=== PATIENT | male | born 1950 | race Caucasian/White ===

== ENCOUNTER 2020-08-04 08:08 | Outpatient (CLI) | payer MEDICARE | END 2020-08-04 08:09 | disposition home or self-care (01) | LOC: CSHCT 08:08 | PROVIDERS: ATTEND Family Medicine Sports Medicine | DX: E27.8 Other specified disorders of adrenal gland (principal); E27.9 Disorder of adrenal gland, unspecified | CPT/HCPCS: 74170; 82565 ==

== ENCOUNTER 2023-06-29 13:31 | Inpatient (IN) | payer OTHER ==
[2023-06-29 14:40] LABS: Hematocrit 43.4 % (38.8-50.0); Hemoglobin 14.8 g/dL (13.5-17.5); MDiff Complete? YES; Mean Corpuscular HGB CONC 34.1 g/dL (32.0-36.0); Mean Corpuscular Hemoglobin 31.4 pg (27.0-33.0); Mean Corpuscular Volume 92.1 fl (81.2-95.1); Mean Platelet Volume 10.3 fl (7.4-10.4); Platelet Count 239 10x3/uL (150-450); Red Blood Cell (RBC) Count 4.71 10x6/uL (4.32-5.72); White Blood Cell (WBC) Count 7.6 10x3/uL (3.5-10.5)
[2023-06-29 14:47] LABS: ALT (SGPT) 18 U/L (8-55); AST (SGOT) 15 U/L (5-34); Albumin 3.9 g/dL (3.4-4.8); Alkaline Phosphatase 62 U/L (40-110); Anion Gap 12 mmol/L (10-20); BUN (Urea Nitrogen) 14 mg/dL (8.4-25.7); Bilirubin, Total 0.6 mg/dL (0.2-1.2); Calc. Creatinine Clearance 0 mL/min (70-130); Calcium 8.7 mg/dL (7.8-10.44); Carbon Dioxide 27 mmol/L (23-31); Chloride 103 mmol/L (98-107); Estimated GFR 87; Globulin 2.7 g/dL (2.4-3.5); Glucose 105 mg/dL (83-110); Lipase 25 U/L (8-78); Potassium 3.7 mmol/L (3.5-5.1); Protein, Total 6.6 g/dL (5.8-8.1); Sodium 138 mmol/L (136-145)
[2023-06-29 14:50] LABS: Troponin I 0.011 ng/mL (< 0.028)
[2023-06-29 15:10] LABS: Band 5 % (5-11); Eosinophils 4 % (0-10); Lymphocytes 28 % (21-51); Monocytes 6 % (0-10); Neutrophil 56 % (42-75)
[2023-06-29 15:13] LABS: SARS-CoV-2 NAA Rapid Test Not Detected (NotDetected)
[2023-06-29 15:16] LABS: Platelet Adequacy Comment Appears Adequate; RBC Morph Comment Within Normal Limits
[2023-06-29] MEDS ORDERED: Ondansetron PF 4 MG/2 ML Vial IVP PRN (15:32)
[2023-06-29] MEDS ORDERED: Acetaminophen 325 MG TAB PO PRN (15:32)
[2023-06-29] MEDS ORDERED: Senokot S 8.6-50 MG TAB PO PRN (15:32)
[2023-06-29] MEDS ORDERED: Bisacodyl 5 MG TAB PO PRN (15:32)
[2023-06-29] MEDS ORDERED: Bisacodyl 10 MG SUPP PR PRN (15:32)
[2023-06-29] MEDS ORDERED: Aspirin Chewable 81 MG TAB ONE (15:41)
[2023-06-29] MEDS ORDERED: hydrALAZINE 20 MG/ML VIAL SLOW IVP PRN (16:21)
[2023-06-29] MEDS: Labetalol HCl 100 MG/20 ML VIAL SLOW IVP PRN (17:35)
[2023-06-29] MEDS: Atorvastatin Calcium 40 MG TAB PO SCH (21:44)
[2023-06-30 04:07] LABS: #Basophils 0.1 10x3/uL (0.0-0.2); #Eosinphils 0.1 10x3/uL (0.0-0.5); #Monocytes 0.6 10x3/uL (0.0-1.1); #Neutrophils 3.3 10x3/uL (1.5-8.4); %Basophils 1.4 % (0.0-2.0); %Eosinophils 2.4 % (0.0-6.0); %Lymphocytes 29.7 % (18.0-47.0); %Monocytes 9.8 % (0.0-10.0); %Neutrophils 56.2 % (40.0-75.0); Hematocrit 39.6 % (38.8-50.0); Hemoglobin 13.6 g/dL (13.5-17.5); Mean Corpuscular HGB CONC 34.3 g/dL (32.0-36.0); Mean Corpuscular Hemoglobin 32.1 pg (27.0-33.0); Mean Corpuscular Volume 93.4 fl (81.2-95.1); Mean Platelet Volume 10.6 fl (7.4-10.4); Platelet Count 222 10x3/uL (150-450); RBC Distribution Width 13.1 % (11.5-14.5); Red Blood Cell (RBC) Count 4.24 10x6/uL (4.32-5.72); White Blood Cell (WBC) Count 5.9 10x3/uL (3.5-10.5)
[2023-06-30 04:33] LABS: Anion Gap 15 mmol/L (10-20); BUN (Urea Nitrogen) 15 mg/dL (8.4-25.7); Calc. Creatinine Clearance 0 mL/min (70-130); Calcium 8.3 mg/dL (7.8-10.44); Carbon Dioxide 22 mmol/L (23-31); Cardiac Risk 2.7 (Less than 4.5); Chloride 105 mmol/L (98-107); Cholesterol 136 mg/dl (< 200 Desired); Estimated GFR 93; Glucose 99 mg/dL (83-110); HDL Cholesterol 50 mg/dL (>60 Neg Risk); LDL Cholesterol, Calculated 72 mg/dL; Magnesium 1.5 mg/dL (1.6-2.6); Potassium 3.3 mmol/L (3.5-5.1); Sodium 139 mmol/L (136-145); Triglycerides 69 mg/dL (Less than 150)
[2023-06-30 04:40] LABS: ALT (SGPT) 14 U/L (8-55); AST (SGOT) 15 U/L (5-34); Albumin 3.5 g/dL (3.4-4.8); Alkaline Phosphatase 54 U/L (40-110); Bilirubin, Direct 0.2 mg/dL (0.1-0.3); Bilirubin, Total 0.4 mg/dL (0.2-1.2); Protein, Total 5.8 g/dL (5.8-8.1)
[2023-06-30] MEDS ORDERED: Electrolyte Replacement Protocol 1 EACH FS SCH (07:15)
[2023-06-30] MEDS: FLU VACC QS2023(65UP)/MF59C/PF 60 MCG/0.5 ML SYRINGE IM ONE (09:14)
[2023-06-30] MEDS: Tamsulosin HCl 0.4 MG CAP PO SCH (09:29)
[2023-06-30] MEDS: Aspirin 81 mg Enteric Coated Tablet PO SCH (09:29)
[2023-06-30] MEDS: Potassium Chloride 20 MEQ TAB PO SCH (09:29)
[2023-06-30] MEDS: Magnesium 2 GM/50 ML(in water) 2 GM in Premix 1 BAG IVPB SCH (09:29)
[2023-06-30] MEDS: Lisinopril 20 MG TAB PO SCH (09:29)
[2023-06-30 14:23] LABS: Potassium 4.1 mmol/L (3.5-5.1)
[2023-06-30] MEDS: Amlodipine 5 MG TAB PO SCH (16:08)
[2023-06-30 16:33] LABS: Hemoglobin A1c 5.3 % (4.0-6.0)
[2023-06-30] MEDS: Enoxaparin 40 MG (0.4 mL) SYRINGE SC SCH (20:26)
[2023-07-01 04:40] LABS: Anion Gap 11 mmol/L (10-20); BUN (Urea Nitrogen) 13 mg/dL (8.4-25.7); Calc. Creatinine Clearance 112 mL/min (70-130); Calcium 8.1 mg/dL (7.8-10.44); Carbon Dioxide 25 mmol/L (23-31); Chloride 105 mmol/L (98-107); Estimated GFR 93; Glucose 103 mg/dL (83-110); Magnesium 2.2 mg/dL (1.6-2.6); Phosphorus 3.1 mg/dL (2.3-4.7); Potassium 3.9 mmol/L (3.5-5.1); Sodium 137 mmol/L (136-145)
[2023-07-01 06:36] LABS: #Basophils 0.1 10x3/uL (0.0-0.2); #Eosinphils 0.2 10x3/uL (0.0-0.5); #Monocytes 0.7 10x3/uL (0.0-1.1); #Neutrophils 4.6 10x3/uL (1.5-8.4); %Basophils 1.4 % (0.0-2.0); %Eosinophils 2.6 % (0.0-6.0); %Lymphocytes 22.1 % (18.0-47.0); %Neutrophils 63.5 % (40.0-75.0); Hematocrit 40.7 % (38.8-50.0); Hemoglobin 13.9 g/dL (13.5-17.5); Mean Corpuscular HGB CONC 34.2 g/dL (32.0-36.0); Mean Corpuscular Volume 93.8 fl (81.2-95.1); Mean Platelet Volume 11.5 fl (7.4-10.4); Platelet Count 229 10x3/uL (150-450); RBC Distribution Width 13.2 % (11.5-14.5); Red Blood Cell (RBC) Count 4.34 10x6/uL (4.32-5.72); White Blood Cell (WBC) Count 7.3 10x3/uL (3.5-10.5)
[2023-07-01] MEDS: Amlodipine 5 MG TAB PO SCH ×2 (07:57→20:33)
[2023-07-01] MEDS ORDERED: Labetalol HCl 100 MG/20 ML VIAL SLOW IVP PRN (11:17)
[2023-07-01] MEDS ORDERED: Benzonatate 100 MG CAP PO PRN (11:17)
[2023-07-01] MEDS ORDERED: Moisturizing Cream (Eucerin) 113 GM JAR TOP PRN (11:17)
[2023-07-01] MEDS ORDERED: hydrALAZINE 20 MG/ML VIAL SLOW IVP PRN (11:17)
[2023-07-01] MEDS ORDERED: Benzocaine/Menthol 1 LOZ LOZ PO PRN (11:17)
[2023-07-01] MEDS ORDERED: Artificial Tear Sol 15 ML BOT EA EYE PRN (11:17)
[2023-07-01] MEDS: Rosuvastatin 20 MG TAB PO SCH (20:33)
[2023-07-02] MEDS: hydrALAZINE 25 MG TAB PO SCH ×3 (07:59→14:40)
[2023-07-02] MEDS: Amlodipine 5 MG TAB PO SCH (09:45)
[2023-07-02 12:14] VITALS: TEMP 98.3
[2023-07-02] MEDS: Labetalol HCl 100 MG TAB PO SCH (13:05)
[2023-07-02 15:32] VITALS: BP 136/70
[2023-07-02] MEDS ORDERED: Labetalol HCl 100 MG TAB PO SCH (21:00)
[2023-07-03] MEDS ORDERED: Amlodipine 10 MG TAB PO SCH (09:00)
== END 2023-07-02 16:09 | disposition home or self-care (01) | DRG 64 ==
LOC: SUATTDRO 13:31 → CSHERS 13:31 → CSHTELE 15:24 → OBSVTOIN 07-01 09:09
PROVIDERS: ADMIT Family Medicine; ATTEND Family Medicine
PROC: 4A00X4Z Measurement of Central Nervous Electrical Activity, External Approach (ICD-10-PCS; principal; 2023-07-01)
DX: I63.9 Cerebral infarction, unspecified (principal); G93.41 Metabolic encephalopathy; I10 Essential (primary) hypertension; Z79.82 Long term (current) use of aspirin; Z79.899 Other long term (current) drug therapy; Z11.52 Encounter for screening for COVID-19; F10.10 Alcohol abuse, uncomplicated; F17.210 Nicotine dependence, cigarettes, uncomplicated; I65.22 Occlusion and stenosis of left carotid artery
CPT/HCPCS: 36415; 36416; 70450; 70551; 71045; 80048; 80053; 80061; 80076; 83036; 83690; 83735; 84100; 84146; 84443; 84484; 85025; 86850; 86900; 86901; 93005; 93306; 93880; 95816; 95819; 96360; J1650; J3475